=== PATIENT | female | born 1975 | race Caucasian/White ===

== ENCOUNTER 2021-10-30 12:32 | Emergency (ER) | payer OTHER ==
[~2021-10-30] VITALS: Ht 170.2 cm; Wt 70.3 kg
[~2021-10-30 12:32] MED LIST: CYCLOBENZAPRINE10 MG PO; NORCO 5-325 TA1 EACH PO
== END 2021-10-30 15:00 | disposition home or self-care (01) ==
LOC: ED 12:32
DX: S61.411A Laceration without foreign body of right hand, initial encounter (principal); W26.8XXA Contact with other sharp object(s), not elsewhere classified, initial encounter
CPT/HCPCS: 12002; 99282-25

== ENCOUNTER 2024-11-06 01:42 | Day surgery (SDC) | payer OTHER ==
[~2024-11-06] VITALS: Ht 170.2 cm; Wt 80.0 kg
[2024-11-06] MEDS ORDERED: MORPHINE SULFATE 4 MG/ML VIAL IV ONE (02:00)
[2024-11-06 02:04] LABS: BASOPHILS 0.4 % (0.1-1.2); EOSINOPHILS 0.6 % (0.7-5.8); LYMPHOCYTES 23.4 % (19.3-51.7); MCH 28.4 PG (25.6-32.2); MCHC 32.2 g/dL (32.2-35.5); MCV 88.3 fL (79.4-94.8); MONOCYTES 3.4 % (4.7-12.5); NEUTROPHILS 71.6 % (34.0-71.1); RBC 4.79 M/uL (3.93-5.22)
[2024-11-06] MEDS ORDERED: LACTATED RINGER'S 1,000 ML IV ONE (02:15)
[2024-11-06 02:24] LABS: ALT (SGPT) 14.0 U/L (14-59); AST (SGOT) 15.0 U/L (15-37); GLOMERULAR FILTRATION RATE,EST 91.0 mL/min (>60); PROTEIN, TOTAL 7.8 g/dL (6.4-8.2); UREA NITROGEN 13.0 mg/dL (7-18)
[2024-11-06] MEDS ORDERED: KETOROLAC TROMETHAMINE 30 MG/ML VIAL IV ONE (02:30)
[2024-11-06] MEDS ORDERED: FAMOTIDINE 20 MG/ 2 ML VIAL IV ONE (02:30)
[2024-11-06] MEDS ORDERED: HYDROmorphone HCL 1 MG/ML SYR IV PRN (02:45)
[2024-11-06 05:07] LABS: BLOOD/HGB, URINE NEGATIVE (Negative); KETONE, URINE NEGATIVE (Negative); LEUK ESTERASE, URINE NEGATIVE (negative); NITRITE, URINE NEGATIVE (negative)
[2024-11-06] MEDS ORDERED: fentaNYL citrate 100 MCG/2 ML VIAL ONE (06:29)
[2024-11-06] MEDS ORDERED: LIDOCAINE HCL 2% 5 ML SDV ONE (06:29)
[2024-11-06] MEDS ORDERED: ROCURONIUM BROMIDE 50 MG/5 ML SYR ONE (06:29)
[2024-11-06] MEDS ORDERED: DEXAMETHASONE SOD PHOS 4 MG/ML VIAL ONE (06:30)
[2024-11-06] MEDS ORDERED: KETAMINE in NS 50 MG/5 ML SYR ONE (06:32)
[2024-11-06] MEDS ORDERED: ACETAMINOPHEN 1,000 MG/100 ML VIAL ONE (06:38)
[2024-11-06] MEDS ORDERED: fentaNYL citrate 50 MCG/ML SDV IV PRN (07:00)
[2024-11-06] MEDS ORDERED: NALOXONE HCL 0.4 MG SYR IV PRN (07:00)
[2024-11-06] MEDS ORDERED: IBLOOD GLUCOSE TEST STRIP 1 EA TEST VI PRN (07:00)
[2024-11-06] MEDS ORDERED: SUGAMMADEX SODIUM 200 MG/2 ML ML ONE (07:47)
--- NOTE | 2024-11-06 08:14 | NUR ---
11/06/24 0814 Cecy Saul 0806: PT ARRIVES TO PACU ALSEEP, BUT REACTIVE TO STIMULI. REPORT RECEIVED FROM CRIB TENDER AND FLY FINISHER.
[2024-11-06 08:42] VITALS: BP 117/64
--- NOTE | 2024-11-06 08:47 | NUR ---
0937- PT ARRIVES FROM PACU. PT IS DROWSY BUT EASILY WAKES TO VERBAL STIMULI. PT IS RESTING WITH EYES CLOSED. BEDSIDE REPORT RECIEVED FROM KADIE ROBLEDO. BED IS LOCKED IN THE LOWEST POSITON. PT DENIES PAIN AND NAUSEA. PLAN OF CARE DISCUSSED AND PT IS AGREEABLE. CALL LIGHT IN REACH.
--- NOTE | 2024-11-06 08:49 | HP ---
[facility] [address] [place], [place] [address] Signed ADMISSION DATE: 11/06/2024 CHIEF COMPLAINT: Left-sided abdominal pain. HISTORY OF PRESENT ILLNESS: The patient is a 49-year-old, G3, P3, who presented to the emergency room this morning at approximately 0100 hours. The patient's complaint was acute onset of left-sided abdominal pain at approximately 2000 hours last night, sharp in nature. It progressed over the course of the evening and at its worst was an 8/10. Her knew something was wrong and convinced her to come to the emergency room. In the emergency room, she was evaluated and worked up, and imaging both CT scan and ultrasound were consistent with a left ovarian torsion. REVIEW OF SYSTEMS: Severe nausea, otherwise review of systems is negative. PAST MEDICAL HISTORY: Patient denies. PAST SURGICAL HISTORY: 1. The patient had an open appendectomy in 1984. 2. She has had section x3. 3. She had a breast reduction. 4. She has had a laparoscopic ovarian cystectomy in the past. Pathology was benign for that. OB HISTORY: x3. SPRAY PILOT HISTORY: Menses are regular. Her last menstrual period was August 2024. She has been irregular for the past 1-1/2 years approximately. She denies any history of abnormal Pap test or sexually transmitted infection. MEDICATIONS: Denies. ALLERGIES: NKDA. Electronically Signed By: BRIANA MARISCAL MD 11/06/24 0849 PATIENT NAME: RADHA CROOK RECORD #: [id number] HISTORY AND PHYSICAL DATE OF : 73 REPORT #: [id number] PHYSICIAN: BRIANA MARISCAL MD PCP: EDWIN KATE PAC REPORT IS CONFIDENTIAL AND NOT TO BE RELEASED WITHOUT AUTHORIZATION [facility] [address] [place], [place] [address] Signed SOCIAL HISTORY: The patient denies tobacco and drugs. She drinks alcohol very occasionally. She is a inclusion teacher. FAMILY HISTORY: History of bladder cancer in her father, nonsmoker. OBJECTIVE: VITAL SIGNS: The patient is afebrile. Vital signs are stable. GENERAL: The patient is alert and oriented x3. She appears to be moderately uncomfortable. HEENT: Mucous membranes are moist. Sclerae are anicteric. NECK: No thyromegaly. HEART: Regular rate and rhythm. No murmur. Normal S1, S2. LUNGS: Clear to auscultation bilaterally. ABDOMEN: Bowel sounds present. Abdomen is soft, moderately tender in the left side, no mass, no hepatosplenomegaly, no rebound. Slight guarding. EXTREMITIES: No cyanosis, clubbing, or edema. Lower extremities are nontender bilaterally. LAB WORK: HCG is negative. Urinalysis shows glucose, otherwise negative. Lipase 32. CBC shows a white blood cell count of 11.8, hemoglobin of 13.6, platelet count of 355. Complete metabolic panel shows normal creatinine and liver functions. She does have a glucose of 236. Hemoglobin A1c is 6.0. IMAGING: CT scan shows multiloculated cystic structure in the left ovary of approximately 6.6 x 5.5 cm. No other acute findings of the CT scan. Pelvic ultrasound shows the left ovary to be 6.6 x 6.0 x 6.4 cm. It is retrouterine in position. It is multiloculated with a thin internal septation. There is "apparent swirling of the adjacent left adnexal vessels." No other adnexal mass noted or free fluid. ASSESSMENT: 49-year-old, G3, P3, with benign-appearing left ovarian cyst and left ovarian torsion. Needs expedited surgical intervention to untwist the left ovary and remove the left ovarian cyst. Electronically Signed By: BRIANA MARISCAL MD 11/06/24 0849 PATIENT NAME: RADHA CROOK HISTORY AND PHYSICAL DATE OF : 73 REPORT #: [id number] PHYSICIAN: BRIANA MARISCAL MD PCP: EDWIN KATE PAC REPORT IS CONFIDENTIAL AND NOT TO BE RELEASED WITHOUT AUTHORIZATION [facility] [address] [place], [place] [address] Signed PLAN: I discussed with the patient and the nature of the issue, the imaging, findings, and the recommendation for surgery. She understands and agrees. Full PARQ regarding diagnostic and operative laparoscopy, laparoscopic correction of her left ovarian torsion, laparoscopic left ovarian cystectomy, possible left oophorectomy, possible laparotomy. All questions were answered. Consent form signed. OR crew notified. Briana Mariscal MD BB/AMYL /[id number] Copies: ~ Electronically Signed By: BRIANA MARISCAL MD 11/06/24 0849 PATIENT NAME: RADHA CROOK HISTORY AND PHYSICAL DATE OF : 73 REPORT #: [id number] PHYSICIAN: BRIANA MARISCAL MD PCP: EDWIN KATE PAC REPORT IS CONFIDENTIAL AND NOT TO BE RELEASED WITHOUT AUTHORIZATION
[2024-11-06 09:53] VITALS: BP 112/48
--- NOTE | 2024-11-06 09:59 | NUR ---
0950- PT IS RESTING IN STRETCHER. PT IS ON PHONE. PT DENIES PAIN AND NAUSEA. AT BEDSIDE. PT REQUESTING BLANKETS THAT ARE PROVIDED. CALL LIGHT IN REACH, BED IS LOCKED IN THE LOWEST POSITON. DISCAHRGE CRITERIA DISCUSSED.
[2024-11-06 11:41] VITALS: BP 106/50
--- NOTE | 2024-11-06 11:56 | NUR ---
1150- PT IS UP TO USE THE RESTROOM. PT WAS ABLE TO VOID 200ML OF CLEAR, YELLOW URINE. PT IS SALINE LOCKED AT THIS TIME. PT HAS A STEADY AND EVEN GAIT TO AND FROM THE RESTROOM. PT GETTING DRESSED IN THE ROOM WITH HUSBANDS ASSISTANCE.
--- NOTE | 2024-11-06 12:36 | NUR ---
1220- IV REMOVED. PT DENIES PAIN AND NAUSEA AT THIS TIME. DISCHARGE INFORMATION GONE OVER. QUESTIONS AND CONCERNS ANSWERED. PT WAS ABLE TO GET DRESSED WITH NO ISSUES. PT TRANSFERS TO WHEELCHAIR WITH NO ISSUES. PT HAS ALL BELONGINGS. PT DC'S FROM DAY SURGERY AT THIS TIME.
[2024-11-06] MEDS ORDERED: SEVOFLURANE 250 ML BTL INH ONE (13:08)
--- NOTE | 2024-11-09 12:31 | PATH ---
[facility] [address] [place], [place] [address] Signed SPECIMEN(S): A LEFT OVARIAN CYST SPECIMEN SOURCE: A. LEFT OVARIAN CYST CLINICAL HISTORY: Torsion left ovary FINAL PATHOLOGIC DIAGNOSIS: Left ovarian cyst: - Benign hemorrhagic cyst (clinical torsion left ovary). - No atypia or malignancy identified. [facility] MICROSCOPIC EXAMINATION: Histologic sections of all submitted blocks are examined by light microscopy. These findings, together with the gross examination, support the pathologic diagnosis. GROSS DESCRIPTION: The specimen, labeled and designated "Komal Crook, left ovarian cyst per requisition," is received in formalin and consists of a 7.3 x 1 x 1 cm disrupted hemorrhagic cystic structure. There is diffuse amount of brown-red congealed blood present. The cyst wall appears to average 0.1 cm in thickness. There are no apparent papillary excrescences. There is no uninvolved ovarian parenchyma. Job Development Specialist sections are submitted in cassette A1. 11/08/2024: The remainder of the specimen is submitted in cassette A2 through A4 per request of Dr. Pett. DAUGHERTY (under the direct supervision of a pathologist) The Gross Description was prepared using a voice recognition system. The report was reviewed for accuracy; however, sound-alike word errors, addition and/or deletions may occur. If there is any question about this report, please contact Client Services. ADDITIONAL NOTES: Immunohistochemical and/or in situ hybridization studies if performed in this case included appropriate positive controls that reacted as expected. This test was developed and its performance characteristics determined by [facility] [employer] [facility]. It has not been cleared or approved by the U.S. Food and Drug Administration. The FDA has determined that PATIENT NAME: RADHA CROOK PATHOLOGY DATE OF : 73 REPORT #: [id number] PHYSICIAN: WESTON ROGERS PCP: EDWIN KATE PAC REPORT IS CONFIDENTIAL AND NOT TO BE RELEASED WITHOUT AUTHORIZATION [facility] [address] [place] [id number] Signed such clearance or approval is not necessary. This test is used for clinical purposes. It should not be regarded as investigational or for research. [facility] [employer] [facility] [employer] [facility] is certified under the Clinical Laboratory Improvement Amendments of 1988 (CLIA) as qualified to perform high complexity clinical laboratory testing. PERFORMING LABORATORY: Technical component was performed by [facility] [employer] [facility] [employer] [facility], [address] [place] [id number] (CLIA# [id number]). Professional interpretation was performed by [facility] - [facility], [address] [place] [id number] (CLIA#: [id number]). Diagnostician: Sivakumar Duncan MD Pathologist Electronically Signed 11/09/2024 Copies: ~ PATIENT NAME: RADHA CROOK PATHOLOGY DATE OF : 73 REPORT #: [id number] PHYSICIAN: [facility] PCP: EDWIN KATE PAC REPORT IS CONFIDENTIAL AND NOT TO BE RELEASED WITHOUT AUTHORIZATION
--- NOTE | 2024-11-13 08:08 | OR ---
[address] [address] Signed DATE OF OPERATION: 11/06/2024 SURGEON: Briana Mariscal MD PREOPERATIVE DIAGNOSES: 1. Left lower quadrant pain. 2. Left ovarian torsion. POSTOPERATIVE DIAGNOSES: 1. Left lower quadrant pain. 2. Left ovarian torsion. 3. Left ovarian cyst. PROCEDURE: Diagnostic and operative laparoscopy, laparoscopic resolution of ovarian torsion, laparoscopic left ovarian cystectomy. FINDINGS: Approximately 5 to 6 cm left ovarian cyst, left ovary torsed on its stalk three times, normal uterus, right ovary and bilateral fallopian tubes. Absent appendix. Normal liver edge and gallbladder tip. ANESTHESIA: General plus local. CYTOGENETIC TECHNICIAN: None. IV FLUIDS: 700 mL crystalloid. ESTIMATED BLOOD LOSS: 3 mL. URINE OUTPUT: 100 mL of clear urine. DRAINS: None. Electronically Signed By: BRIANA MARISCAL MD 11/13/24 0808 PATIENT NAME: RADHA CROOK OPERATIVE REPORT DATE OF : 73 REPORT #: [id number] PHYSICIAN: BRIANA MARISCAL MD PCP: EDWIN KATE PAC REPORT IS CONFIDENTIAL AND NOT TO BE RELEASED WITHOUT AUTHORIZATION [address] [address] Signed SPECIMENS: Left ovarian cyst. COUNTS: Correct x2. COMPLICATIONS: None apparent. TECHNIQUE IN DETAIL: With informed consent and negative hCG the patient was taken to the operating room where she was given general endotracheal anesthesia. Once intubated, she underwent a brief exam under anesthesia and was then prepped and draped in sterile fashion. Time-out was performed per protocol. Her lower extremities were placed in SCD pneumatic compression devices as well. No antibiotics were given as none were indicated. A speculum was placed in the cervix was visualized. Single-tooth tenaculum was placed on the anterior lip of the cervix and Ley cannula was placed into the cervical canal. The red rubber catheter was used to empty the bladder. The catheter was wedged in between the arms of the tenaculum to keep it in place for continued bladder drainage. Over gloves were then removed and attention was turned to the abdomen. 5 mL of 0.5% Marcaine with epinephrine were injected periumbilically and another 5 mL were injected suprapubically. A 1 cm incision was made in the umbilical region and a Veress needle was inserted into the abdomen without difficulty. The Veress needle was attached to CO2 insufflation. Opening pressure was 2 mmHg. With an adequate pneumoperitoneum created, the Veress needle was removed and a 5 mm non-bladed Visiport trocar was inserted under direct visualization and also without difficulty. The patient was then placed in Trendelenburg position. A 1 cm suprapubic incision was made and a 5 mm non-bladed port was inserted under direct visualization and without difficulty. A blunt probe was then inserted and the pelvic and abdominal contents were examined with the above-mentioned findings. Attempts to unravel the left ovary with just the blunt probe were unsuccessful. At this time, a location in the left lower quadrant for another port was chosen. We identified the inferior epigastric vessels and choose a spot lateral to the vessels. We also transilluminated to ensure no superficial vessels present. 5 mL of 0.5% Marcaine were injected at the site and 1 cm incision was made. A 5 mm non-bladed port was inserted under direct visualization and without difficulty. Attempts to unravel the left ovary at this time were much more successful. We laid the left ovary out along the left pelvic sidewall. We identified the cyst. At this point, it was determined that due to the floppy nature of the cyst and the stretching of the left ovarian ligaments that an approach from the right side was going to be necessary. Electronically Signed By: BRIANA MARISCAL MD 11/13/24 0808 PATIENT NAME: RADHA CROOK OPERATIVE REPORT DATE OF : 73 REPORT #: [id number] PHYSICIAN: BRIANA MARISCAL MD PCP: EDWIN KATE PAC REPORT IS CONFIDENTIAL AND NOT TO BE RELEASED WITHOUT AUTHORIZATION [facility] [address] [place], [place] [address] Signed At this point, the right inferior epigastric were identified and a right lower quadrant location lateral to the inferior epigastrics was chosen. Transillumination was performed. No superficial vessels identified. 5 mL of 0.5% Marcaine were injected in the right lower quadrant area and a 1 cm incision was made. A 4th 5 mm non-bladed port was inserted under direct visualization and without difficulty. At this point, the arms of the LigaSure device were used to puncture the ovarian cyst. We then cauterized and cut an opening in the left ovary. Approximately 45 mL of serous fluid escaped. We were able to identify the cyst wall and using Karissa grasper and blunt grasper the cyst wall was from the overlying ovary and we were able to peel the cyst wall away from the ovary. Once the cyst wall had been completely peeled away which took a good 10 minutes or so. We removed the cyst wall through one of the 5 mm ports. This was easily achieved. Cyst wall sent to Pathology. The left ovary and the pelvis was then vigorously irrigated and all irrigant was removed. We will leave the left ovary out to assess hemostasis and noted that the left ovary was not bleeding. At this point, we folded the ovary on to itself and tucked it down flat behind the uterus. At this point, surgery was deemed to be complete. The left and right lower quadrant trocars were removed and examined from within to ensure good hemostasis which was noted. The suprapubic port was removed without difficulty and good hemostasis noted here as well. All CO2 was removed from the abdomen. The skin incisions were closed with 4-0 Vicryl. Dermabond was placed and a bandage was placed over the incisions. The red rubber catheter as well as the tenaculum and Ley cannula were then removed. The cervix was assessed and found to be hemostatic. DISPOSITION: The patient was extubated in the operating room and she was taken to the recovery room in stable condition. Briana Mariscal MD BB/AMYL /[id number] Electronically Signed By: BRIANA MARISCAL MD 11/13/24 0808 PATIENT NAME: RADHA CROOK OPERATIVE REPORT DATE OF : 73 REPORT #: [id number] PHYSICIAN: BRIANA MARISCAL MD PCP: EDWIN KATE PAC REPORT IS CONFIDENTIAL AND NOT TO BE RELEASED WITHOUT AUTHORIZATION [address] [place], [place] [address] Signed Copies: ~ Electronically Signed By: BRIANA MARISCAL MD 11/13/24 0808 PATIENT NAME: RADHA CROOK OPERATIVE REPORT DATE OF : 73 REPORT #: [id number] PHYSICIAN: BRIANA MARISCAL MD PCP: EDWIN KATE PAC REPORT IS CONFIDENTIAL AND NOT TO BE RELEASED WITHOUT AUTHORIZATION
== END 2024-11-06 12:20 | disposition home or self-care (01) ==
LOC: ED 01:42 → DS 06:44
PROVIDERS: Internal Medicine; ATTEND Obstetrics & Gynecology
PROC: 0UN14ZZ Release Left Ovary, Percutaneous Endoscopic Approach (ICD-10-PCS; 2024-11-06)
PROC: 0J9C3ZZ Drainage of Pelvic Region Subcutaneous Tissue and Fascia, Percutaneous Approach (ICD-10-PCS; principal; 2024-11-06 06:30)
DX: N83.512 Torsion of left ovary and ovarian pedicle (principal); N83.202 Unspecified ovarian cyst, left side; Z90.49 Acquired absence of other specified parts of digestive tract
CPT/HCPCS: 00840; 36415; 74177; 76830; 76856; 80053; 81003; 83036; 83690; 83735; 84703; 85025; 96361; 96374; 96375; 96376; 99285-25; J0131; J1100; J1171; J1790; J1885; J2003; J2270; J2405; J2704; J3010; J3490; J7121; Q9967